=== PATIENT | female | born 1950 | race African-American/Black ===

== ENCOUNTER 2022-10-23 15:36 | Emergency (ER) | payer OTHER ==
[~2022-10-23] VITALS: Ht 167.6 cm; Wt 95.0 kg
[2022-10-23 15:53] VITALS: O2SAT 98
[2022-10-23 18:04] LABS: BASOPHILS % 0.7 % (0.0-2.0); EOSINOPHILS % 1.8 % (0.0-5.0); HEMATOCRIT. 37.2 % (36.0-48.0); HEMOGLOBIN. 12.2 g/dL (12.0-16.0); LYMPHOCYTES % 19.8 % (20.0-50.0); MEAN CORPUSCULAR VOLUME 88.5 fL (81.0-99.0); MEAN PLATELET VOLUME 8.4 fl (7.4-10.4); MONOCYTES % 8.7 % (2.0-8.0); PLATELET 290 x1000/uL (130-400)
[2022-10-23 18:13] LABS: CHLORIDE 107 mEq/L (98-107)
[2022-10-23 18:24] LABS: ETHANOL BLOOD < 10 mg/dL (-10)
[2022-10-23 18:31] LABS: *AMPHETAMINES SCREEN URINE NEGATIVE (NEGATIVE); *BARBITURATES SCREEN URINE NEGATIVE (NEGATIVE); *BENZODIAZEPINES SCREEN URINE NEGATIVE (NEGATIVE); *COCAINE SCREEN URINE NEGATIVE (NEGATIVE); CANNABINOID URINE SCREEN NEGATIVE (NEGATIVE); METHADONE URINE SCREEN NEGATIVE (NEGATIVE); OPIATES URINE SCREEN PRESUMTIVE POSITIVE (NEGATIVE); PHENCYCLIDINE URINE SCREEN NEGATIVE (NEGATIVE)
[2022-10-23 20:43] VITALS: BP 154/67; PULSE 57; RESP 13; TEMP 98
== END 2022-10-23 21:45 | disposition short-term general hospital (02) ==
LOC: EDBD 15:36 → ER 15:36
DX: R07.89 Other chest pain (principal); I10 Essential (primary) hypertension; Z88.0 Allergy status to penicillin; Z00.00 Encounter for general adult medical examination without abnormal findings
CPT/HCPCS: 36415; 71045; 80053; 80305; 80320; 83880; 84484; 85025; 99285; G0480

== ENCOUNTER 2025-03-17 19:54 | Emergency (ER) | payer OTHER ==
[~2025-03-17] VITALS: Ht 162.6 cm; Wt 79.0 kg
[2025-03-17 19:59] VITALS: O2SAT 100
[2025-03-17 21:51] LABS: BASOPHILS % 0.7 % (0.0-2.0); EOSINOPHILS % 2.4 % (0.0-5.0); HEMATOCRIT. 37.1 % (36.0-48.0); HEMOGLOBIN. 12.0 g/dL (12.0-16.0); LYMPHOCYTES % 17.1 % (20.0-50.0); MEAN PLATELET VOLUME 8.8 fl (7.4-10.4); MONOCYTES % 10.3 % (2.0-8.0); NEUTROPHILS % 69.5 % (40.0-76.0); PLATELET 215 x1000/uL (130-400); RED BLOOD CELL COUNT 4.06 mill/uL (4.2-5.4); RED CELL DISTRIBUTION WIDTH 13.6 % (11.6-14.6)
[2025-03-17 22:06] LABS: CREATININE 0.8 mg/dL (0.6-1.0); UREA NITROGEN BLOOD 18 mg/dL (9-23)
[2025-03-17] MEDS: ACETAMINOPHEN WITH CODEINE 120-12MG/5ML UDC PO ONE (22:38)
[2025-03-17 23:13] VITALS: BP 173/74; PULSE 79; RESP 16; TEMP 36.5; O2SAT 100
== END 2025-03-17 23:13 | disposition home or self-care (01) ==
LOC: ER 19:54
DX: G62.9 Polyneuropathy, unspecified (principal); E03.9 Hypothyroidism, unspecified; Z88.0 Allergy status to penicillin
CPT/HCPCS: 36415; 80048; 85025; 99283